=== PATIENT | female | born 1980 | race American Indian/Alaskan Native ===

== ENCOUNTER 2019-02-03 16:30 | Emergency (ER) | payer MEDICARE ==
[2019-02-03 18:01] VITALS: BP 202/108
--- NOTE | 2019-02-03 18:02 | Event Note ---
ED Screening Note Date of service: 02/03/19 Time: 17:58 ED Screening Note: 38 yo female c/o low back pain and elevated blood pressure x 2 days. She reports compliance with Lisinopril and Diltiazem. Denies CP and SOB. Denies any falls or injuries. Denies urinary symptoms. This initial assessment/diagnostic orders/clinical plan/treatment(s) is/are subject to change based on patients health status, clinical progression and re- assessment by fellow clinical providers in the ED. Further treatment and workup at subsequent clinical providers discretion. Patient/guardian urged not to elope from the ED as their condition may be serious if not clinically assessed and managed. Initial orders include: UA
[2019-02-03 19:01] LABS: Bacteria,Urine 1+ /HPF (Negative); Bilirubin,Urine NEG (Negative); Blood,Urine NEG (Negative); Color,Urine Yellow (Yellow); Mucus,Urine 3+ /HPF; Protein,Urine <15 mg/dL mg/dL (Negative)
[2019-02-03] MEDS ORDERED: CYCLOBENZAPRINE 10 MG TAB PO ONE (20:33)
[2019-02-03] MEDS ORDERED: cloNIDine 0.2 MG TAB PO ONE (20:33)
[2019-02-03] MEDS ORDERED: IBUPROFEN 800 MG TAB PO ONE (20:35)
--- NOTE | 2019-02-03 21:13 | Emergency Department Report ---
ED Back Pain/Injury HPI - General Chief Complaint: Back Pain/Injury Stated Complaint: BACK PAIN/BLOOD PRESSURE Time Seen by Provider: 02/03/19 19:40 Source: patient Limitations: No Limitations - History of Present Illness Initial Comments: This is a 38-year-old female with a history of hypertension who presents to ED complaining of left-sided lower back pain 1 week. Patient denies any injury or trauma. Patient states pain is throbbing in nature and localized to her lower left-sided back pain. She denies fevers/chills/nausea vomiting/chest pain/shortness of breath or any other symptoms MD Complaint: back pain - Related Data Home Medications Medication Instructions Recorded Confirmed Last Taken Diltiazem 24Hr ER 300 mg PO QDAY 11/06/18 11/06/18 Unknown Lisinopril [Zestril] 20 mg PO QDAY 11/06/18 11/06/18 Unknown Potassium Chloride [K-Dur] 10 meq PO QHS 11/06/18 11/06/18 Unknown Previous Rx's Medication Instructions Recorded Last Taken Type Benzonatate [Tessalon Perles] 100 mg PO Q8HR PRN #20 capsule 11/06/18 Unknown Rx Ibuprofen [Motrin] 800 mg PO Q8HR PRN #30 tablet 11/06/18 Unknown Rx Lisinopril [Zestril TAB] 20 mg PO QDAY #30 tablet 11/06/18 Unknown Rx Potassium Chloride [K-Dur] 20 meq PO BID #6 tab 11/06/18 Unknown Rx amLODIPine [Norvasc] 5 mg PO DAILY #30 tab 11/06/18 Unknown Rx traMADoL [Ultram 50 MG tab] 50 mg PO Q6HR PRN #20 tablet 11/06/18 Unknown Rx Allergies Allergy/AdvReac Type Severity Reaction Status Date / Time amoxicillin Allergy Anaphylaxis Verified 02/03/19 16:35 Iodine and Iodide Containing Allergy Hives Verified 02/03/19 16:35 Produc latex Allergy Rash Verified 02/03/19 16:35 IV dye Allergy Rash Uncoded 02/03/19 16:35 ED Review of Systems ROS: Stated complaint: BACK PAIN/BLOOD PRESSURE Other details as noted in HPI Comment: All other systems reviewed and negative ED Back Pain Physical Exam - Exam General: Vital signs noted. No distress. Alert and acting appropriately. Back/Abdomen: No Abdominal Tenderness, No Perithoracic Tenderness, No Perilumbar Tenderness, No Sacroiliac Tenderness, No Flank Tenderness, No Straight Leg Raise Pain Neuro: Yes Normal Sensation, Yes Normal DTR's, Yes Normal Gait, No Motor Weakness ED Course Vital Signs 02/03/19 17:56 Temperature 98.7 F Pulse Rate 102 H Respiratory 20 Rate Blood Pressure 202/108 O2 Sat by Pulse 96 Oximetry - Reevaluation(s) Reevaluation #1: 5 minutes after leaving the patient's room. Patient eloped and left the ER area with another patient. Since staff brought this to my attention after patient had left 02/03/19 21:11 Ed Back Pain Tests - Tests Tests: Normal ED Medical Decision Making - Medical Decision Making 38-year-old female presents with low back muscle pain Patient did state 7 out of her blood pressure for the past couple of days. I discussed the patient had a blood pressure is in the ED and will need to administer medication prior to leaving. Patient is not symptomatic in the ED. Clonidine ordered to reduce blood pressure. Critical care attestation.: If time is entered above; I have spent that time in minutes in the direct care of this critically ill patient, excluding procedure time. ED Disposition Clinical Impression: Strain of muscle, fascia and tendon of lower back, initial encounter Disposition: Z-07 ELOPED Is pt being admited?: No Does the pt Need Aspirin: No Condition: Stable Instructions: Muscle Strain (ED) Referrals: PRIMARY CARE, [Primary Care Provider] - 3-5 Days
== END 2019-02-03 20:35 | disposition left against medical advice (07) ==
LOC: ED 16:30
DX: S39.012A Strain of muscle, fascia and tendon of lower back, initial encounter (principal); Z79.899 Other long term (current) drug therapy; Z88.1 Allergy status to other antibiotic agents; Z91.040 Latex allergy status; Z88.8 Allergy status to other drugs, medicaments and biological substances; X58.XXXA Exposure to other specified factors, initial encounter; Y93.89 Activity, other specified; Y92.89 Other specified places as the place of occurrence of the external cause; Y99.8 Other external cause status
CPT/HCPCS: 81001

== ENCOUNTER 2019-03-30 09:43 | Emergency (ER) | payer MEDICARE ==
[2019-03-30 09:59] VITALS: BP 217/131
--- NOTE | 2019-03-30 11:35 | Emergency Department Report ---
ED General Adult HPI - General Chief complaint: Urogenital-Female Stated complaint: KNOT ON BREAST Time Seen by Provider: 03/30/19 11:29 Source: patient Mode of arrival: Ambulatory Limitations: No Limitations - History of Present Illness Initial comments: 38-year-old -Mongolian female presents to the emergency room complaining of right breast not. Patient states that she went to an [facility] and they would not see her due to lack of her insurance benefits. Patient states that she has a strong family history of breast cancer mother has breast cancer that has great breast cancer and grandmother has breast cancer. Patient reports that she gets her yearly mammogram. Patient denies any discharge from the nipple denies any redness warm swelling. Patient also reports that she's been out of her blood pressure medication. It was noted that her blood pressure was 217/131. Onset/Timin -: week(s) Location: chest (right breast) Severity scale (0 -10): 0 Treatments Prior to Arrival: none - Related Data Home Medications Medication Instructions Recorded Confirmed Last Taken Potassium Chloride [K-Dur] 10 meq PO QHS 11/06/18 11/06/18 Unknown Previous Rx's Medication Instructions Recorded Last Taken Type Benzonatate [Tessalon Perles] 100 mg PO Q8HR PRN #20 capsule 11/06/18 Unknown Rx Ibuprofen [Motrin] 800 mg PO Q8HR PRN #30 tablet 11/06/18 Unknown Rx amLODIPine [Norvasc] 5 mg PO DAILY #30 tab 11/06/18 Unknown Rx lisinopriL [Zestril TAB] 20 mg PO QDAY #30 tablet 11/06/18 Unknown Rx traMADoL [Ultram 50 MG tab] 50 mg PO Q6HR PRN #20 tablet 11/06/18 Unknown Rx Diltiazem 24Hr ER 300 mg PO QDAY #30 03/30/19 Unknown Rx Potassium Chloride [K-Dur] 20 meq PO QDAY #30 tab 03/30/19 Unknown Rx lisinopriL [Zestril TAB] 20 mg PO QDAY #30 03/30/19 Unknown Rx Allergies Allergy/AdvReac Type Severity Reaction Status Date / Time amoxicillin Allergy Anaphylaxis Verified 02/03/19 16:35 Iodine and Iodide Containing Allergy Hives Verified 02/03/19 16:35 Produc latex Allergy Rash Verified 02/03/19 16:35 IV dye Allergy Rash Uncoded 02/03/19 16:35 ED Review of Systems ROS: Stated complaint: KNOT ON BREAST Other details as noted in HPI Comment: All other systems reviewed and negative ED Past Medical Hx - Past Medical History Previous Medical History?: Yes Hx Hypertension: Yes - Surgical History Past Surgical History?: Yes Hx Cholecystectomy: Yes Hx Appendectomy: Yes Additional Surgical History: C section. left knee replacement - Social History Smoking Status: Former Smoker Substance Use Type: None - Medications Home Medications: Home Medications Medication Instructions Recorded Confirmed Last Taken Type Benzonatate [Tessalon Perles] 100 mg PO Q8HR PRN #20 capsule 11/06/18 Unknown Rx Ibuprofen [Motrin] 800 mg PO Q8HR PRN #30 tablet 11/06/18 Unknown Rx Potassium Chloride [K-Dur] 10 meq PO QHS 11/06/18 11/06/18 Unknown History amLODIPine [Norvasc] 5 mg PO DAILY #30 tab 11/06/18 Unknown Rx lisinopriL [Zestril TAB] 20 mg PO QDAY #30 tablet 11/06/18 Unknown Rx traMADoL [Ultram 50 MG tab] 50 mg PO Q6HR PRN #20 tablet 11/06/18 Unknown Rx Diltiazem 24Hr ER 300 mg PO QDAY #30 03/30/19 Unknown Rx Potassium Chloride [K-Dur] 20 meq PO QDAY #30 tab 03/30/19 Unknown Rx lisinopriL [Zestril TAB] 20 mg PO QDAY #30 03/30/19 Unknown Rx ED Physical Exam - General Limitations: No Limitations General appearance: alert - Head Head exam: Present: atraumatic, normocephalic - Eye Eye exam: Present: normal appearance - ENT ENT exam: Present: mucous membranes moist - Respiratory Respiratory exam: Present: other (right breast 7:00 mobile mass nontender to palpate no nipple discharge) - Neurological Exam Neurological exam: Present: alert, oriented X3, normal gait - Psychiatric Psychiatric exam: Present: normal affect, normal mood - Skin Skin exam: Present: warm, dry, intact, normal color. Absent: rash ED Course Vital Signs 03/30/19 09:58 Temperature 97.8 F Pulse Rate 83 Respiratory 16 Rate Blood Pressure 217/131 O2 Sat by Pulse 98 Oximetry ED Medical Decision Making - Medical Decision Making 38-year-old -Mongolian female presents to the emergency room complaining of right breast not. Patient states that she went to an [facility] and they would not see her due to lack of her insurance benefits. Patient states that she has a strong family history of breast cancer mother has breast cancer that has great breast cancer and grandmother has breast cancer. Patient reports that she gets her yearly mammogram. Patient denies any discharge from the nipple denies any redness warm swelling. Spoke to Dr. Elder for at [phone] she reports that she will contact patient within the next hour to have her come in tomorrow. She also asked me to give patient the office number so if she has not heard from them within an hour for her to call. I discussed the patient I'll refill her blood pressure medication for 30 days and I will refer her to Dr. Lopez. Patient verbalized understanding Critical care attestation.: If time is entered above; I have spent that time in minutes in the direct care of this critically ill patient, excluding procedure time. ED Disposition Clinical Impression: Mass of right breast, Hypertension, Noncompliance Disposition: DC- TO HOME OR SELFCARE Is pt being admited?: No Does the pt Need Aspirin: No Condition: Stable Instructions: Hypertension (ED) Additional Instructions: Please call Dr. Padilla who is the breast specialist at [phone]. Follow up with Dr. Lewis internal medicine provider for your hypertension. Prescriptions: Diltiazem 24Hr ER 300 mg PO QDAY #30 Potassium Chloride [K-Dur] 20 meq PO QDAY #30 tab lisinopriL [Zestril TAB] 20 mg PO QDAY #30 Referrals: WILNER NEIL MD [Primary Care Provider] - 3-5 Days MATTHEW GARCIA MD [Staff Physician] - 3-5 Days SAUL LARKIN MD [Staff Physician] - 3-5 Days
== END 2019-03-30 11:49 | disposition home or self-care (01) ==
LOC: ED 09:43
DX: N63.10 Unspecified lump in the right breast, unspecified quadrant (principal); I10 Essential (primary) hypertension; Z91.14 Patient's other noncompliance with medication regimen; Z91.041 Radiographic dye allergy status; Z91.040 Latex allergy status; Z88.0 Allergy status to penicillin; Z90.49 Acquired absence of other specified parts of digestive tract; Z98.890 Other specified postprocedural states; Z87.891 Personal history of nicotine dependence; Z79.899 Other long term (current) drug therapy
CPT/HCPCS: 99281

== ENCOUNTER 2019-04-10 15:26 | Outpatient (CLI) | payer MEDICARE, OTHER | END 2019-04-10 15:27 | disposition home or self-care (01) | LOC: LABHHL 15:26 | PROVIDERS: ATTEND Surgery | DX: N63.13 Unspecified lump in the right breast, lower outer quadrant (principal) | CPT/HCPCS: 88305 ==

== ENCOUNTER 2019-07-08 12:00 | Day surgery (SDC) | payer MEDICARE ==
[2019-07-08] MEDS ORDERED: VANCOMYCIN 1,500 MG in SODIUM CHLORIDE 0.9% 500 ML 500 ML IV NR (13:00)
[2019-07-08] MEDS ORDERED: LACTATED RINGERS 1,000 ML IV SCH (13:00)
[2019-07-08 14:26] LABS: BUN/Creatinine Ratio 33; Blood Urea Nitrogen 10 mg/dL (7-17); Calcium 8.7 mg/dL (8.4-10.2); Hemolysis Index 3
[2019-07-08] MEDS ORDERED: HYDROmorphone 1 MG/1 ML INJ IV PRN (14:27)
[2019-07-08] MEDS ORDERED: ONDANSETRON 4 MG/2 ML INJ IV PRN (14:27)
[2019-07-08] MEDS ORDERED: MAGNESIUM OXIDE 400 MG TAB PO ONE (14:28)
[2019-07-08] MEDS ORDERED: ACETAMINOPHEN 500 MG TAB PO ONE (14:28)
--- NOTE | 2019-07-08 14:28 | Anesthesia Day of Surgery ---
Anesthesia Day of Surgery - Day of Surgery Patient Examined: Yes Patient H&P Reviewed: Yes Patient is NPO: Yes
--- NOTE | 2019-07-08 14:33 | Anesthesia Consultation ---
Anesthesia Consult and Med Hx Date of service: 07/08/19 - Airway Anesthetic Teeth Evaluation: Good ROM Head & Neck: Adequate Mental/Hyoid Distance: Adequate Mallampati Class: Class III Intubation Access Assessment: Good - Pre-Operative Health Status ASA Pre-Surgery Classification: ASA3 Proposed Anesthetic Plan: General - Pulmonary Hx Smoking: Yes (SINCE AGE 11; QUIT 5 MOS AGO) Hx Respiratory Symptoms: No (Lung ca in 1999-s/p chemo. +2FS) Hx Sleep Apnea: No (HX OF SLEEP WALKING) - Cardiovascular System Hx Hypertension: Yes (SINCE AGE 15) - Central Nervous System Hx Psychiatric Problems: Yes (Depression) - Other Systems Hx Alcohol Use: No Hx Substance Use: No Hx Cancer: Yes Hx Obesity: Yes
[2019-07-08] MEDS ORDERED: MIDAZOLAM 2 MG/2 ML INJ IV NR (15:00)
[2019-07-08] MEDS ORDERED: CELECOXIB 200 MG CAP PO NR (15:00)
[2019-07-08] MEDS ORDERED: LISINOPRIL 20 MG TAB PO SCH (15:26)
[2019-07-08] MEDS ORDERED: ONDANSETRON 4 MG/2 ML INJ ONE (15:40)
[2019-07-08] MEDS ORDERED: LIDOCAINE MPF (2%) 20 MG/1 ML VIAL 5 ML ONE (15:40)
[2019-07-08] MEDS ORDERED: BUPIVACAINE/PF (0.25%) 2.5 MG/ML 30 ML VIAL INFILTRATI ONE ×2 (15:41→16:52)
[2019-07-08] MEDS ORDERED: LIDOCAINE (1%) 10 MG/1 ML VIAL 20 ML MDV ONE (15:41)
[2019-07-08] MEDS ORDERED: propofoL 200 MG/20 ML VIAL IV ONE (15:41)
[2019-07-08] MEDS ORDERED: fentaNYL 100 MCG/2 ML INJ ONE (15:41)
[2019-07-08] MEDS ORDERED: dexAMETHasone 20 MG/5 ML VIAL ONE (15:48)
[2019-07-08] MEDS ORDERED: HYDROmorphone 1 MG/1 ML INJ ONE (16:15)
[2019-07-08] MEDS ORDERED: LIDOCAINE (1%) 10 MG/1 ML VIAL 20 ML MDV INFILTRATI ONE (16:52)
[2019-07-08] MEDS ORDERED: SODIUM CHLORIDE 0.9% IRR 1,500 ML BOTTLE IR ONE (16:54)
--- NOTE | 2019-07-08 17:22 | Short Stay Summary ---
Short Stay Documentation Date of service: 07/08/19 - History H&P: obtained from office - Allergies and Medications Current Medications: Allergies amoxicillin Allergy (Verified 07/06/19 11:34) Anaphylaxis Iodine and Iodide Containing Produc Allergy (Verified 07/06/19 11:34) Hives latex Allergy (Verified 07/06/19 11:34) Rash IV dye Allergy (Uncoded 07/06/19 11:35) Rash Home Medications Medication Instructions Recorded Confirmed Last Taken Type Potassium Chloride [K-Dur] 10 meq PO QHS 11/06/18 07/06/19 07/07/19 History lisinopriL [Zestril TAB] 20 mg PO QDAY #30 tablet 11/06/18 07/06/19 07/07/19 Rx Lurasidone HCl [Latuda] 20 mg PO QDAY 07/06/19 07/06/19 07/07/19 History dilTIAZem CD [Cardizem Cd] 300 mg PO QDAY 07/06/19 07/08/19 07/08/19 08:00 History HYDROcodone/APAP 5-325 [[place] 1 each PO Q6HR PRN #15 tablet 07/08/19 Unknown Rx 5/325] Active Medications Celecoxib (Celebrex) 400 mg PO PREOP NR Stop: 07/09/19 14:59 Last Admin: 07/08/19 14:52 Dose: 400 mg Documented by: Hydromorphone HCl (Dilaudid) 0.5 mg IV Q10MIN PRN PRN Reason: Pain , Severe (7-10) Stop: 07/09/19 14:26 Lactated Ringer's (Lactated Ringers) 1,000 mls @ 100 mls/hr IV DIRECT GLORIA Last Admin: 07/08/19 13:35 Dose: 100 mls/hr Documented by: Midazolam HCl (Versed) 2 mg IV PREOP NR Stop: 07/08/19 23:59 Last Admin: 07/08/19 15:00 Dose: 2 mg Documented by: Ondansetron HCl (Zofran) 4 mg IV ONCE PRN PRN Reason: Nausea And Vomiting - Brief post op/procedure progress note Date of procedure: 07/08/19 Pre-op diagnosis: Right breast fibroadenoma Post-op diagnosis: same Procedure: Right breast fibroadenoma excisional biopsy Anesthesia: GETA Findings: Right breast fibroadenoma at 8:00 position Surgeon: MATTHEW GARCIA Estimated blood loss: minimal Pathology: list Specimen disposition: to lab Condition: stable - Disposition Condition at discharge: Good Disposition: DC-01 TO HOME OR SELFCARE Short Stay Discharge Plan Activity: other (no heavy lifting) Diet: regular Wound: keep clean and dry (may shower in 48 hours, no baths or pools; wear breast binder) Additional Instructions: LISINOPRIL 20 MG GIVEN BY MOUTH IN PREOP. Follow up with: WILNER NEIL MD [Primary Care Provider] - 7 Days MATTHEW GARCIA MD [Staff Physician] - 7 Days Prescriptions: HYDROcodone/APAP 5-325 [[place] 5/325] 1 each PO Q6HR PRN #15 tablet PRN Reason: Pain
--- NOTE | 2019-07-08 17:31 | Operative Report ---
Operative Report Operative Report: Operative Report: Date of procedure: 07/08/2019 Pre-operative diagnosis: Right breast fibroadenoma of the lower outer quadrant Post-operative diagnosis: Same Procedure name(s): Right breast fibroadenoma excisional biopsy Surgeon: Tracy Mclaughlin MD Anesthesia: Gen. LMA EBL: less than 10 cc Findings: Large 3 cm mass consistent with previously biopsied fibroadenoma Disposition: PACU in good condition Indications: This is a 39-year-old -Taj[place] lady recently biopsy palpable right breast fibroadenoma at the 8 o'clock position about 4 cm from the nipple. Recommendations were to proceed with an excisional biopsy given size as well as symptomatic pain. Patient wished to proceed with the above procedure. Procedure: Patient was taken to the operating room, she was positioned supine on the operating table. Pneumatic compression stockings were applied and activ ated. Gen. anesthesia via LMA was administered. A timeout is performed. The patient's right breast is prepped with and draped in the normal sterile fashion. The mass was palpated at the 8:00 position. Ultrasound used as well to identify right breast mass. A para-areola incision was made aroudn the 8:00 position and carried down through the subcutaneous tissue. Dissection was then carried post eriorly and the fibroadenoma was then encountered and dissected free. Specimen was then sent to pathology. The breast cavity was examined with no other suspicious masses. The breast cavity was anesthetized with 1% lidocaine mixed with quarter percent Marcaine. Hemostasis was achieved using the electrocautery. The breast cavity was irrigated and suctioned. The deep breast tissues and subcuteneous tissues were approximated and closed with an interrupted 3-0 suture and the skin was approximated and closed using 4-0 Monocryl suture. The patient tolerated surgery very well and was awaken by the cleaner greaser and taken to the recovery room in good condition.
[2019-07-08 18:41] VITALS: BP 144/77
[2019-07-08] MEDS ORDERED: HYDROcodone/ACETAMINOPHEN 5-325 MG TAB PO ONE (19:00)
--- NOTE | 2019-07-08 20:22 | Post Anesthesia Evaluation ---
- Post Anesthesia Evaluation Patient Participated: Yes Airway Patent: Yes Stable Respiratory Function: Yes Nausea/Vomiting: No Temp > 96.8F: Yes Pain Manageable: Yes Adequeate Hydration: Yes Anesthesia Complications: No Block Receding Appropriately: Not Applicable Patient on Ventilator: No
[2019-07-17] MEDS ORDERED: VANCOMYCIN/NS 1 GM/250 ML 1 GM/250 ML BAG IV NR (06:00)
[2019-07-17] MEDS ORDERED: VANCOMYCIN 1,500 MG in SODIUM CHLORIDE 0.9% 500 ML 500 ML IV NR (06:00)
== END 2019-07-08 12:01 | disposition home or self-care (01) ==
LOC: OR 12:00
PROVIDERS: ATTEND Surgery
DX: D24.1 Benign neoplasm of right breast (principal); I10 Essential (primary) hypertension; E66.9 Obesity, unspecified; Z11.59 Encounter for screening for other viral diseases; F32.9 Major depressive disorder, single episode, unspecified; Z98.890 Other specified postprocedural states; Z79.899 Other long term (current) drug therapy; Z91.040 Latex allergy status; Z87.891 Personal history of nicotine dependence; Z85.118 Personal history of other malignant neoplasm of bronchus and lung; Z90.49 Acquired absence of other specified parts of digestive tract; Z96.652 Presence of left artificial knee joint; Z80.8 Family history of malignant neoplasm of other organs or systems; Z91.041 Radiographic dye allergy status; Z88.8 Allergy status to other drugs, medicaments and biological substances
CPT/HCPCS: 19120; 36415; 80048; 81025; 88305; 88341; 88342; J1100; J1170; J2250; J2405; J2704; J3010; J3370; J7040; J7120; U0003

== ENCOUNTER 2020-06-23 21:56 | Emergency (ER) | payer MEDICARE | END 2020-06-23 22:00 | disposition left against medical advice (07) | LOC: ED 21:56 | DX: M79.602 Pain in left arm (principal); M79.89 Other specified soft tissue disorders; Z53.21 Procedure and treatment not carried out due to patient leaving prior to being seen by health care provider ==

== ENCOUNTER 2020-06-24 13:23 | Emergency (ER) | payer MEDICARE ==
[2020-06-24 13:30] VITALS: BP 196/108
--- NOTE | 2020-06-24 14:36 | Emergency Department Report ---
ED Chest Pain HPI - General Chief Complaint: Chest Pain Stated Complaint: LT SIDE/ARM HURTING Source: patient Mode of arrival: Ambulatory Limitations: No Limitations - History of Present Illness Initial Comments: 40-year-old morbid obese -[place] female presents to the emergency room complaining of chest pain and states she has trouble moving her left arm. Patient states this happened 2 days ago. Patient reports she has a past medical history of hypertension congestive heart failure. MD Complaint: chest pain Onset/Timin -: days(s) Pain Radiation: LUE Severity scale (0 -10): 8 Quality: aching Consistency: constant Improves With: nothing Worsens With: nothing re: denies: nausea, vomting Other Symptoms: denies: cough, fever Treatments Prior to Arrival: none - Related Data On Oral Contraceptives: No Previous Rx's Medication Instructions Recorded Last Taken Type Apixaban [Eliquis] 5 mg PO Q12HR #60 tablet 10/18/19 Unknown Rx Furosemide [Lasix] 20 mg PO QDAY #30 tablet 10/18/19 Unknown Rx Losartan [Cozaar] 100 mg PO DAILY #60 tablet 10/18/19 Unknown Rx dilTIAZem CD [Cardizem CD] 300 mg PO QDAY #30 cap 10/18/19 Unknown Rx Allergies Allergy/AdvReac Type Severity Reaction Status Date / Time amoxicillin Allergy Anaphylaxis Verified 07/06/19 11:34 Iodine and Iodide Containing Allergy Hives Verified 07/06/19 11:34 Produc latex Allergy Rash Verified 07/06/19 11:34 IV dye Allergy Rash Uncoded 07/06/19 11:35 Heart Score - HEART Score History: Slightly suspicious EKG: Normal Age: < 45 Risk factors: 1-2 risk factors Troponin: < normal limit HEART Score: 1 - EKG Read Time Time EKG Completed: 17:52 EKG Read Time: 17:55 ED Review of Systems ROS: Stated complaint: LT SIDE/ARM HURTING Other details as noted in HPI Comment: All other systems reviewed and negative ED Past Medical Hx - Past Medical History Hx Hypertension: Yes Hx Congestive Heart Failure: Yes Hx HIV: (NEVER TESTED) - Surgical History Hx Cholecystectomy: Yes Hx Appendectomy: Yes Additional Surgical History: C section. left knee replacement - Social History Smoking Status: Former Smoker - Medications Home Medications: Home Medications Medication Instructions Recorded Confirmed Last Taken Type Apixaban [Eliquis] 5 mg PO Q12HR #60 tablet 10/18/19 Unknown Rx Furosemide [Lasix] 20 mg PO QDAY #30 tablet 10/18/19 Unknown Rx Losartan [Cozaar] 100 mg PO DAILY #60 tablet 10/18/19 Unknown Rx dilTIAZem CD [Cardizem CD] 300 mg PO QDAY #30 cap 10/18/19 Unknown Rx ED Physical Exam - General Limitations: No Limitations General appearance: alert, in no apparent distress, obese - Head Head exam: Present: atraumatic, normocephalic, normal inspection - Eye Eye exam: Present: normal appearance, PERRL - ENT ENT exam: Present: normal exam, normal external ear exam - Neck Neck exam: Present: normal inspection, full ROM - Respiratory Respiratory exam: Absent: accessory muscle use - Cardiovascular Cardiovascular Exam: Present: regular rate ED Course Vital Signs 06/24/20 13:27 Temperature 98.9 F Pulse Rate 67 Respiratory 18 Rate Blood Pressure 196/108 [Right] O2 Sat by Pulse 97 Oximetry BJ score - Bj Score Age > 65: (0) No Aspirin use within the Past 7 Days: (0) No 3 or more CAD Risk Factors: (0) No 2 or more Angina events in past 24 hrs: (1) Yes Known CAD with more than 50% Stenosis: (0) No Elevated Cardiac Markers: (0) No ST Deviation Greater than 0.5mm: (0) No BJ Score: 1 ED Medical Decision Making - Lab Data Result diagrams: 06/24/20 14:39 06/24/20 14:39 - Radiology Data Radiology results: report reviewed [address] [address] XRay Report Signed Patient: VOLODYMYR FROST MR#: [id number] : 1980 Acct:[id number] Age/Sex: 40 / F ADM Date: 06/24/20 Loc: ED Attending Dr: Ordering Physician: ARMANDO AMIN Date of Service: 06/24/20 Procedure(s): XR chest routine 2V Accession Number(s): [id number] cc: ARMANDO AMIN Fluoro Time In Minutes: CHEST 2 VIEWS INDICATION: chest pain. COMPARISON: 10/16/2019 FINDINGS: Support devices: None. Heart: Within normal limits. Lungs/pleura: No acute air space or interstitial disease. No pneumothorax. Additional findings: None. IMPRESSION: No acute findings. Normal chest x-ray. Signer Name: Randal Alatorre Jr, MD Signed: 06/24/2020 3:17 PM Workstation Name: [id number] Transcribed By: TTR Dictated By: RANDAL ALATORRE JR, MD Electronically Authenticated By: RANDAL ALATORRE JR, MD Signed Date/Time: 06/24/201516 DD/ 15 TD/TT: Print Cancel - Medical Decision Making 40-year-old morbid obese -[place] female presents to the emergency room complaining of chest pain and states she has trouble moving her left arm. Patient states this happened 2 days ago. Patient reports she has a past medical history of hypertension congestive heart failure. The patient is resting comfortably and feeling better, is alert and in no distress. The repeat examination is unremarkable and benign. The electrocardiogram shows no signs of acute ischemia and the history, exam, diagnostic testing and current condition do not suggest that this patient is having acute myocardial infarction, significant arrhythmia, unstable angina, esophageal perforation, pulmonary embolism, aortic dissection, pneumothorax, severe pneumonia, sepsis or other significant pathology that would warrant further testing, continued ED treatment, admission, or cardiology or other specialist consultation at this point. The vital signs have been stable. The patient's condition is stable and appropriate for discharge. The patient will pursue further outpatient evaluation with primary care physician, other designated physician or plaster patternmaker. The patient and/or caregiver have expressed a clear in thorough understanding and agrees to the follow-up as instructed. Critical care attestation.: If time is entered above; I have spent that time in minutes in the direct care of this critically ill patient, excluding procedure time. ED Disposition Clinical Impression: Atypical chest pain Disposition: DC-01 TO HOME OR SELFCARE Is pt being admited?: No Does the pt Need Aspirin: No Condition: Stable Instructions: Nonspecific Chest Pain, Adult Additional Instructions: Follow-up with your primary care provider. Referrals: LYUDMILA ASTORGA [Other] - 3-5 Days
[2020-06-24 14:58] LABS: Basophils % (Auto) 0.7 % (0.0-1.8); Eosinophils # (Auto) 0.1 K/mm3 (0.0-0.4); Eosinophils % (Auto) 1.6 % (0.0-4.3); Hemoglobin 12.6 gm/dl (10.1-14.3); Lymphocytes # (Auto) 2.1 K/mm3 (1.2-5.4); Lymphocytes % (Auto) 33.1 % (13.4-35.0); Mean Corpuscular HGB Conc 32 % (30-34); Mean Corpuscular Volume 87 fl (79-97); Monocytes # (Auto) 0.6 K/mm3 (0.0-0.8); Monocytes % (Auto) 10.2 % (0.0-7.3); Platelet Count 330 K/mm3 (140-440); Red Cell Distribution Width 14.7 % (13.2-15.2)
[2020-06-24 15:13] LABS: Blood Urea Nitrogen 10 mg/dL (7-17); Hemolysis Index 5
[2020-06-24 15:21] LABS: BUN/Creatinine Ratio 14
--- NOTE | 2020-06-24 15:21 | XRay Report ---
CHEST 2 VIEWS INDICATION: chest pain. COMPARISON: 10/16/2019 FINDINGS: Support devices: None. Heart: Within normal limits. Lungs/pleura: No acute air space or interstitial disease. No pneumothorax. Additional findings: None. IMPRESSION: No acute findings. Normal chest x-ray. Signer Name: Randal Alatorre Jr, MD Signed: 06/24/2020 3:17 PM Workstation Name: [id number]
--- NOTE | 2020-06-27 11:10 | Electrocardiograph Report ---
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
== END 2020-06-24 19:10 | disposition home or self-care (01) ==
LOC: ED 13:23
DX: R07.89 Other chest pain (principal); I11.0 Hypertensive heart disease with heart failure; I50.9 Heart failure, unspecified; Z90.49 Acquired absence of other specified parts of digestive tract; Z98.890 Other specified postprocedural states; Z79.899 Other long term (current) drug therapy; Z88.8 Allergy status to other drugs, medicaments and biological substances
CPT/HCPCS: 36415; 71046; 80048; 84484; 85025; 93005

== ENCOUNTER 2021-04-14 09:02 | Emergency (ER) | payer MEDICARE ==
--- NOTE | 2021-04-14 09:44 | Emergency Department Report ---
ED Female HPI - General Chief complaint: Vaginal Bleeding Stated complaint: BLEEDING X2.5 MONTHS Time Seen by Provider: 04/14/21 09:26 Source: patient Mode of arrival: Ambulatory Limitations: No Limitations - Related Data Previous Rx's Medication Instructions Recorded Last Taken Type Apixaban [Eliquis] 5 mg PO Q12HR #60 tablet 10/18/19 Unknown Rx Furosemide [Lasix] 20 mg PO QDAY #30 tablet 10/18/19 Unknown Rx Losartan [Cozaar] 100 mg PO DAILY #60 tablet 10/18/19 Unknown Rx dilTIAZem CD [Cardizem CD] 300 mg PO QDAY #30 cap 10/18/19 Unknown Rx Allergies Allergy/AdvReac Type Severity Reaction Status Date / Time amoxicillin Allergy Anaphylaxis Verified 07/06/19 11:34 Iodine and Iodide Containing Allergy Hives Verified 07/06/19 11:34 Produc latex Allergy Rash Verified 07/06/19 11:34 lisinopril Allergy Anaphylaxis Verified 04/14/21 09:23 Penicillins Allergy Anaphylaxis Verified 04/14/21 09:23 IV dye Allergy Rash Uncoded 07/06/19 11:35 ED Review of Systems ROS: Stated complaint: BLEEDING X2.5 MONTHS Other details as noted in HPI ED Past Medical Hx - Past Medical History Hx Hypertension: Yes Hx Congestive Heart Failure: Yes Hx HIV: (NEVER TESTED) Additional medical history: Afib - Surgical History Hx Cholecystectomy: Yes Hx Appendectomy: Yes Additional Surgical History: C section. left knee replacement - Social History Smoking Status: Former Smoker - Medications Home Medications: Home Medications Medication Instructions Recorded Confirmed Last Taken Type Apixaban [Eliquis] 5 mg PO Q12HR #60 tablet 10/18/19 Unknown Rx Furosemide [Lasix] 20 mg PO QDAY #30 tablet 10/18/19 Unknown Rx Losartan [Cozaar] 100 mg PO DAILY #60 tablet 10/18/19 Unknown Rx dilTIAZem CD [Cardizem CD] 300 mg PO QDAY #30 cap 10/18/19 Unknown Rx ED Physical Exam - General Limitations: No Limitations Critical care attestation.: If time is entered above; I have spent that time in minutes in the direct care of this critically ill patient, excluding procedure time. ED Disposition Condition: Stable
[2021-04-14 09:47] VITALS: BP 160/79
--- NOTE | 2021-04-14 09:48 | Emergency Department Report ---
ED Female HPI - General Chief complaint: Vaginal Bleeding Stated complaint: BLEEDING X2.5 MONTHS Time Seen by Provider: 04/14/21 09:26 Source: patient Mode of arrival: Ambulatory Limitations: No Limitations - History of Present Illness Initial comments: 41-year-old obese -[place] female presents to the emergency room complaining of heavy menstrual cycle since February 13. Patient states that she last saw her primary care provider which she states she knows [place] last week. 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 She reports that she has a history of anemia. She denies any shortness of breath no chest pain no palpitations no headache no nausea no vomiting. Patient reports she has a history of hypertension, A. fib. She states that she is on Eliquis. She reports she has a surgical history of tubal ligation. She denies any urinary symptoms. No fever no chills. Onset/Timin -: month(s) Severity scale (0 -10): 0 Are you Now?: No Associated Symptoms: vaginal bleeding. denies: abdominal pain, nausea/vomiting, fever/chills - Related Data Sexually active: Yes Previous Rx's Medication Instructions Recorded Last Taken Type Apixaban [Eliquis] 5 mg PO Q12HR #60 tablet 10/18/19 Unknown Rx Furosemide [Lasix] 20 mg PO QDAY #30 tablet 10/18/19 Unknown Rx Losartan [Cozaar] 100 mg PO DAILY #60 tablet 10/18/19 Unknown Rx dilTIAZem CD [Cardizem CD] 300 mg PO QDAY #30 cap 10/18/19 Unknown Rx medroxyPROGESTERone ACETATE 10 mg PO QDAY #10 tab 04/14/21 Unknown Rx [Provera] Allergies Allergy/AdvReac Type Severity Reaction Status Date / Time amoxicillin Allergy Anaphylaxis Verified 07/06/19 11:34 Iodine and Iodide Containing Allergy Hives Verified 07/06/19 11:34 Produc latex Allergy Rash Verified 07/06/19 11:34 lisinopril Allergy Anaphylaxis Verified 04/14/21 09:23 Penicillins Allergy Anaphylaxis Verified 04/14/21 09:23 IV dye Allergy Rash Uncoded 07/06/19 11:35 ED Review of Systems ROS: Stated complaint: BLEEDING X2.5 MONTHS Other details as noted in HPI Comment: All other systems reviewed and negative ED Past Medical Hx - Past Medical History Hx Hypertension: Yes Hx Congestive Heart Failure: Yes Hx HIV: (NEVER TESTED) - Surgical History Hx Cholecystectomy: Yes Hx Appendectomy: Yes Additional Surgical History: C section. left knee replacement - Social History Smoking Status: Former Smoker - Medications Home Medications: Home Medications Medication Instructions Recorded Confirmed Last Taken Type Apixaban [Eliquis] 5 mg PO Q12HR #60 tablet 10/18/19 Unknown Rx Furosemide [Lasix] 20 mg PO QDAY #30 tablet 10/18/19 Unknown Rx Losartan [Cozaar] 100 mg PO DAILY #60 tablet 10/18/19 Unknown Rx dilTIAZem CD [Cardizem CD] 300 mg PO QDAY #30 cap 10/18/19 Unknown Rx medroxyPROGESTERone ACETATE 10 mg PO QDAY #10 tab 04/14/21 Unknown Rx [Provera] ED Physical Exam - General Limitations: No Limitations General appearance: alert, in no apparent distress - Head Head exam: Present: atraumatic, normocephalic - Eye Eye exam: Present: normal appearance - ENT ENT exam: Present: mucous membranes moist - Neck Neck exam: Present: normal inspection - Respiratory Respiratory exam: Present: normal lung sounds bilaterally. Absent: respiratory distress - Cardiovascular Cardiovascular Exam: Present: regular rate, normal rhythm. Absent: systolic murmur, diastolic murmur, rubs, gallop - GI/Abdominal GI/Abdominal exam: Present: soft, normal bowel sounds - Extremities Exam Extremities exam: Present: normal inspection - Back Exam Back exam: Present: normal inspection - Neurological Exam Neurological exam: Present: alert, oriented X3 - Psychiatric Psychiatric exam: Present: normal affect, normal mood - Skin Skin exam: Present: warm, dry, intact, normal color. Absent: rash ED Course Vital Signs 04/14/21 09:21 Temperature 97.9 F Pulse Rate 81 Respiratory 18 Rate Blood Pressure 160/79 O2 Sat by Pulse 100 Oximetry ED Medical Decision Making - Lab Data Result diagrams: 04/14/21 09:52 04/14/21 10:00 - Medical Decision Making 41-year-old obese -[place] female presents to the emergency room complaining of heavy menstrual cycle since February 13. Patient states that she last saw her primary care provider which she states she knows [place] last week. 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 She reports that she has a history of anemia. She denies any shortness of breath no chest pain no palpitations no headache no nausea no vomiting. Patient reports she has a history of hypertension, A. fib. She states that she is on Eliquis. She reports she has a surgical history of tubal ligation. She denies any urinary symptoms. No fever no chills. CBC hCG urinalysis CMP type and screen Critical care attestation.: If time is entered above; I have spent that time in minutes in the direct care of this critically ill patient, excluding procedure time. ED Disposition Clinical Impression: Abnormal uterine bleeding, Menorrhagia Disposition: 01 HOME / SELF CARE / HOMELESS Is pt being admited?: No Does the pt Need Aspirin: No Condition: Stable Instructions: Abnormal Uterine Bleeding, Menorrhagia, [id number] Prescriptions: medroxyPROGESTERone ACETATE [Provera] 10 mg PO QDAY #10 tab Referrals: ROSEMARY LEHMAN MD [Other] - 3-5 Days Forms: Work/School Release Form(ED) Time of Disposition: 12:51
[2021-04-14 10:35] LABS: Alanine Aminotransferase 12 units/L (7-56); Albumin 3.8 g/dL (3.9-5); Blood Urea Nitrogen 12 mg/dL (7-17); Calcium 8.4 mg/dL (8.4-10.2); Hemolysis Index 12
[2021-04-14 10:36] LABS: Basophils % (Auto) 0.6 % (0.0-1.8); Eosinophils # (Auto) 0.3 K/mm3 (0.0-0.4); Eosinophils % (Auto) 3.7 % (0.0-4.3); Hematocrit 26.1 % (30.3-42.9); Hemoglobin 8.9 gm/dl (10.1-14.3); Lymphocytes # (Auto) 1.8 K/mm3 (1.2-5.4); Lymphocytes % (Auto) 22.3 % (13.4-35.0); Mean Corpuscular HGB Conc 34 % (30-34); Mean Corpuscular Volume 80 fl (79-97); Monocytes # (Auto) 0.7 K/mm3 (0.0-0.8); Monocytes % (Auto) 8.7 % (0.0-7.3); Platelet Count 327 K/mm3 (140-440); Red Blood Count 3.28 M/mm3 (3.65-5.03); Red Cell Distribution Width 17.8 % (13.2-15.2)
[2021-04-14 10:39] LABS: BUN/Creatinine Ratio 20
[2021-04-14 10:54] LABS: Bilirubin,Urine NEG (Negative); Blood,Urine LG (Negative); Color,Urine Straw (Yellow); Mucus,Urine FEW /HPF; Protein,Urine <15 mg/dL mg/dL (Negative); Urobilinogen,Urine < 2.0 mg/dL (<2.0)
[2021-04-14 11:47] LABS: INR 0.97 (0.87-1.13)
[2021-04-14 11:48] LABS: Partial Thromboplastin Time 30.2 Sec. (24.2-36.6)
== END 2021-04-14 18:30 | disposition home or self-care (01) ==
LOC: ED 09:02
DX: N92.0 Excessive and frequent menstruation with regular cycle (principal); I11.0 Hypertensive heart disease with heart failure; I50.9 Heart failure, unspecified; Z98.890 Other specified postprocedural states; Z87.891 Personal history of nicotine dependence; Z88.1 Allergy status to other antibiotic agents; Z88.6 Allergy status to analgesic agent; Z91.040 Latex allergy status; Z79.01 Long term (current) use of anticoagulants; Z79.899 Other long term (current) drug therapy
CPT/HCPCS: 36415; 80053; 81001; 84702; 85025; 85610; 85730; 86850; 86900; 86901; 99283

== ENCOUNTER 2021-04-26 10:47 | Emergency (ER) | payer MEDICARE ==
[2021-04-26 11:06] VITALS: BP 157/93
--- NOTE | 2021-04-26 13:39 | Event Note ---
ED Screening Note Date of service: 04/26/21 Time: 13:37 ED Screening Note: 41-year-old female with a past medical history of CHF, hypertension, A. fib, hypothyroidism, and GERD presents to the emergency department for evaluation of vaginal bleeding. She states that she has been having vaginal bleeding since December 2020 and states that she saturates greater than 20 pads per day. She states that she is now having dizziness weakness and leg cramping. She states that she was seen here for same a couple of months ago started on some hormones but had no improvement. 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 She states that she is on Eliquis for A. fib. She denies chest pain or shortness of breath. This initial assessment/diagnostic orders/clinical plan/treatment(s) is/are subject to change based on patients health status, clinical progression and re- assessment by fellow clinical providers in the ED. Further treatment and workup at subsequent clinical providers discretion. Patient/guardian urged not to elope from the ED as their condition may be serious if not clinically assessed and managed. Initial orders include:
--- NOTE | 2021-04-26 14:55 | Ultrasound Report ---
ULTRASOUND PELVIS INDICATION: abnormal vaginal bleeding. TECHNIQUE: Transabdominal and Transvaginal. Duplex Color Doppler used: Yes. COMPARISON: None available FINDINGS: Uterus: Present. Size: 20.5 x 7.3 x 6.7 cm. Endometrial complex: Thickened measuring 2 cm. Mass lesions: None. Additional findings: None. Right Ovary: Obscured by bowel gas. No distinct right adnexal abnormality. Left Ovary: Size: 2.9 x 1.1 x 2.9 cm Blood flow: Normal. Cyst or mass: None. Urinary Bladder: Normal. Free Fluid: None. Additional Findings: None. IMPRESSION: 1. Nonspecific endometrial thickening without identification of an associated mass. 2. Nonvisualization of the right ovary. 3. No other significant abnormality. Signer Name: Alfred Nolasco MD Signed: 04/26/2021 2:51 PM Workstation Name: [id number]
[2021-04-26 15:21] LABS: Hematocrit 28.9 % (30.3-42.9); Hemoglobin 8.9 gm/dl (10.1-14.3); Mean Corpuscular HGB Conc 31 % (30-34); Mean Corpuscular Volume 81 fl (79-97); Platelet Count 359 K/mm3 (140-440); Red Blood Count 3.55 M/mm3 (3.65-5.03); Red Cell Distribution Width 18.1 % (13.2-15.2)
[2021-04-26 15:38] LABS: Alanine Aminotransferase 9 units/L (7-56); Blood Urea Nitrogen 10 mg/dL (7-17); Calcium 8.8 mg/dL (8.4-10.2); Hemolysis Index 0
[2021-04-26 15:57] LABS: BUN/Creatinine Ratio 14
== END 2021-04-26 17:11 | disposition left against medical advice (07) ==
LOC: ED 10:47
DX: N93.9 Abnormal uterine and vaginal bleeding, unspecified (principal); Z53.21 Procedure and treatment not carried out due to patient leaving prior to being seen by health care provider
CPT/HCPCS: 36415; 76830; 76856; 80053; 84703; 85027